=== PATIENT | male | born 1995 | race Caucasian/White ===

== ENCOUNTER 2016-09-03 12:24 | Emergency (ER) | payer OTHER ==
[2016-09-03] MEDS ORDERED: Diphtheria,Pertussis(Acell),Tetanus Vaccine 0.5 ML SDV IM ONE (12:34)
[2016-09-03] MEDS ORDERED: Bacitracin Oint 1 GM U/D Packet TOP ONE (12:34)
--- NOTE | 2016-09-03 13:12 | EDM.PDOC ---
ED HPI GENERAL MEDICAL PROBLEM - General Chief Complaint: Laceration Stated Complaint: CUT LEFT INDEX FINGER Time Seen by Provider: 09/03/16 13:11 Source of Information: Reports: Patient, Family, RN notes reviewed - History of Present Illness INITIAL COMMENTS - FREE TEXT/NARRATIVE: pt arrived with a laceration from catching the finger on a bolt. He is not current with his tetanus. Pt has a 1/2 inch laceration in the left index finger on the rodriguez portion. Onset: today Duration: Hour(s): Location: Reports: upper extremity, left Associated Symptoms: Reports: denies other symptoms Left 2-Index finger Pain Score (Numeric/FACES): 2 - Related Data Allergies Allergy/AdvReac Type Severity Reaction Status Date / Time No Known Allergies Allergy Verified 09/03/16 12:50 Home Meds: Home Meds NK [No Known Home Meds] 09/03/16 [History] Past Medical History - Past Health History Medical/Surgical History: Denies Medical/Surgical History Social & Family History - Caffeine Use Caffeine Use: Reports: None - Recreational Drug Use Recreational Drug Use: No ED ROS GENERAL - Review of Systems Review Of Systems: See Below Constitutional: Reports: No Symptoms HEENT: Reports: No Symptoms Respiratory: Reports: No Symptoms Cardiovascular: Reports: No Symptoms Endocrine: Reports: No Symptoms GI/Abdominal: Reports: No Symptoms : Reports: No Symptoms Musculoskeletal: Reports: Other (laceration of left index finger. ) ED EXAM, SKIN/RASH Exam: See Below Text/Narrative:: pt arrived with a laceration of the left index finger. Exam Limited By: No Limitations General Appearance: Alert Ears: Normal TMs Nose: Normal Inspection Throat/Mouth: Normal Inspection Head: Atraumatic Neck: Normal Inspection Extremities: Other ( laceration of the left index finger on the dorsal aspect 1/ 2 inch in length. He has full range of motion of the finger. He has normal sensation of the tip of the finger/ ) Neurological: Alert, Oriented Course - Vital Signs Last Recorded V/S: Last Vital Signs Temp 35.9 C 09/03/16 12:48 Pulse 74 09/03/16 12:48 Resp 14 09/03/16 12:48 BP 128/69 09/03/16 12:48 Pulse Ox 99 09/03/16 12:48 - Orders/Labs/Meds Orders: Active Orders 24 hr Category Date Time Status Vaccines to be Administered [RC] PER UNIT ROUTINE Care 09/03/16 12:34 Active Meds: Medications Discontinued Medications Generic Name Dose Route Start Last Admin Trade Name Kris PRN Reason Stop Dose Admin Bacitracin 1 dose 09/03/16 12:34 09/03/16 13:00 Bacitracin Oint 1 Gm TOP 09/03/16 12:35 1 dose ONETIME ONE Administration Diphtheria/Tetanus/Acell Pertussis 0.5 ml 09/03/16 12:34 09/03/16 13:00 Adacel IM 09/03/16 12:35 0.5 ml .ONCE ONE Administration Lidocaine HCl 5 ml 09/03/16 12:34 09/03/16 13:00 Xylocaine-Mpf 1% INJECT 09/03/16 12:35 5 ml ONETIME ONE Administration - Re-Assessments/Exams Free Text/Narrative Re-Assessment/Exam: 09/03/16 13:34 Pr arrived with a 2 inch laceration on the rodriguez aspect of the index finger He has normal range of motion and normal sensation. The area was cleansed well and infiltrated with lidocaine. The wound was closed with 5-0 chromic and 5-0 prolene. It was dressed with bacatracin. / 09/03/16 13:38 Departure - Departure Time of Disposition: 13:40 Disposition: Home, Self-Care 01 Condition: fair Clinical Impression: Laceration of left index finger - Discharge Information Forms: ED Department Discharge Care Plan Goals: keep dry, no further ontments, keep covered. splint was sent home with him. sr in 7-8 days. - My Orders Last 24 Hours: My Active Orders 09/03/16 12:34 Vaccines to be Administered [RC] PER UNIT ROUTINE - Assessment/Plan Last 24 Hours: My Active Orders 09/03/16 12:34 Vaccines to be Administered [RC] PER UNIT ROUTINE
[2016-09-03 13:20] VITALS: BP 128/69
== END 2016-09-03 13:54 | disposition home or self-care (01) ==
LOC: JP.ED 12:24
DX: S61.211A Laceration without foreign body of left index finger without damage to nail, initial encounter (principal); Z23 Encounter for immunization; W27.0XXA Contact with workbench tool, initial encounter
CPT/HCPCS: 12001; 90471; 90715; 99283-25

== ENCOUNTER 2020-08-24 18:51 | Emergency (ER) | payer OTHER ==
[2020-08-24] MEDS ORDERED: Lidocaine 1% with EPINEPHrine 1:100,000 50 ML MDV SUBCUT STA (19:16)
[2020-08-24] MEDS ORDERED: Bacitracin Oint 1 GM U/D Packet TOP ONE (19:16)
--- NOTE | 2020-08-24 19:23 | EDM.PDOC ---
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 has no functional complaints denies pain Pain Score (Numeric/FACES): 0 - Related Data Allergies Allergy/AdvReac Type Severity Reaction Status Date / Time No Known Allergies Allergy Verified 08/24/20 19:07 Home Meds: Home Meds Venlafaxine HCl [Venlafaxine ER] 37.5 mg PO DAILY 08/24/20 [History] Past Medical History Psychiatric History: Reports: Anxiety, Depression Social & Family History - Tobacco Use Tobacco Use Status *Q: Never Tobacco User - Caffeine Use Caffeine Use: Reports: None - Recreational Drug Use Recreational Drug Use: No ED ROS GENERAL - Review of Systems Review Of Systems: See Below Skin: Reports: Wound ED EXAM, SKIN/RASH Exam: See Below Text/Narrative:: There is a 2.5 cm laceration near the right elbow completely through the dermis linear into the subcutaneous tissue full range of motion all digits radial pulses +2 sensation is intact ED SKIN PROCEDURES - Laceration/Wound Repair Right Arm Appearance: Subcutaneous, Linear Distal NVT: Neuro & Vascular Intact, No Tendon Injury Anesthetic Type: Local Local Anesthesia - Lidocaine (Xylocaine): 1% with EPI Local Anesthetic Volume: 3cc Skin Prep: Saline Saline Irrigation (cc's): 60 Exploration/Debridement/Repair: Wound Explored, In a Bloodless Field, Explored to Base Closed with: Sutures Lac/Wound length In cm: 2.5 # of Sutures: 1 Suture Type: Nylon, Running Suture Size: 4-0 # of Sutures: 2 Suture Size: 4-0 Sterile Dressing Applied: Nurse Tetanus Status Addressed: Yes Complications: No Course - Vital Signs Last Recorded V/S: Last Vital Signs Temp 98.0 F 08/24/20 19:08 Pulse 98 08/24/20 19:08 Resp 98 H 08/24/20 19:08 BP 155/77 H 08/24/20 19:08 Pulse Ox 97 08/24/20 19:08 - Orders/Labs/Meds Meds: Medications Discontinued Medications Generic Name Dose Route Start Last Admin Trade Name Kris PRN Reason Stop Dose Admin Bacitracin 1 dose 08/24/20 19:16 08/24/20 19:21 Bacitracin Oint 1 Gm U/D Packet TOP 08/24/20 19:17 1 dose ONETIME ONE Administration Lidocaine/Epinephrine 20 ml 08/24/20 19:16 08/24/20 19:21 Lidocaine 1% With Epinephrine 1:100,000 50 Ml Mdv SUBCUT 08/24/20 19:17 20 ml NOW STA Administration Departure - Departure Time of Disposition: 19:47 Disposition: Home, Self-Care 01 Condition: Fair Clinical Impression: Laceration of right forearm Qualifiers: Encounter type: initial encounter Qualified Code(s): S51.811A - Laceration without foreign body of right forearm, initial encounter - Discharge Information Instructions: Laceration Care, Adult Referrals: Carloz Matthew MD [Primary Care Provider] - Forms: ED Department Discharge Additional Instructions: My God suture movement 10 days, follow wound care instruction sheet, call or return to the emergency department worsening of symptoms return to primary care clinic or emergency department for suture removal Sepsis Event Note (ED) - Evaluation Sepsis Screening Result: No Definite Risk - Focused Exam Vital Signs: Vital Signs Temp Pulse Resp BP Pulse Ox 08/24/20 19:08 98.0 F 98 98 H 155/77 H 97 08/24/20 19:04 98.0 F 98 98 H 155/77 H 97 - Problem List Review Problem List Initiated/Reviewed/Updated: ( and she gave me the sheet that she wants the doctors to following a Micro-K while you give this to the doctors and asked them what their opinion but) - Assessment/Plan Plan: Assessment Acuity = acute Site and laterality = 2.5 cm laceration right elbow Etiology = trauma Manifestations = none Location of injury = Home Lab values = none Plan Suture removal in 10 days, follow wound care instruction sheet This note was dictated using [employer] voice recognition software please call with any questions on syntax or grammar. She has
[2020-08-24 20:04] VITALS: BP 155/77; PULSE 98
== END 2020-08-24 19:59 | disposition home or self-care (01) ==
LOC: JP.ED 18:51
DX: S51.811A Laceration without foreign body of right forearm, initial encounter (principal); Z79.899 Other long term (current) drug therapy; W26.8XXA Contact with other sharp object(s), not elsewhere classified, initial encounter
CPT/HCPCS: 12001; 99282; 99282-25